=== PATIENT | female | born 1960 | race Caucasian/White ===

== ENCOUNTER 2022-04-04 12:24 | Outpatient (CLI) | payer MEDICARE, SELFPAY ==
[2022-04-04 12:33] VITALS: BMI 30.5
[2022-04-04 13:00] LABS: Basophils # 0.1 K/mm3 (0-0.2); Basophils % 1.3 % (0.1-2.0); Eosinophils # 0.3 K/mm3 (0.0-0.4); Eosinophils % 2.6 % (0.1-12.0); Hematocrit 26.7 % (37.0-47.0); Hemoglobin 8.3 g/dL (12.2-16.2); Lymphocytes # 2.5 K/mm3 (0.7-4.5); Lymphocytes % 23.4 % (10-50); Mean Corpuscular HGB Conc 30.9 g/dL (31.8-35.4); Mean Corpuscular Volume 77.6 fl (81-99); Mean Platelet Volume 7.7 fl (7.4-10.4); Monocytes # 0.6 K/mm3 (0.1-1.0); Monocytes % 5.5 % (1.7-9.3); Neutrophils # 7.1 K/mm3 (1.8-7.8); Neutrophils % 67.3 % (37.0-80.0); Platelet Count 711 K/mm3 (142-424); Red Blood Count 3.44 M/mm3 (4.20-5.40); Red Cell Distribution Width 17.6 % (11.5-17.5); White Blood Count 10.6 K/mm3 (4.8-10.8)
[2022-04-04 13:13] VITALS: BP 145/83; PULSE 84; RESP 18; TEMP 36.4; O2SAT 98
[2022-04-04 13:40] VITALS: BP 151/71; PULSE 73; RESP 16; O2SAT 99
[2022-04-04 14:05] VITALS: BP 148/78; PULSE 74; RESP 16; O2SAT 98
[2022-04-04 14:12] LABS: Ferritin 22.1 ng/ml (11.1-264)
[2022-04-04 14:28] LABS: Iron 32 ug/dL (37-170)
[2022-04-04 14:30] VITALS: BP 143/77; PULSE 78; RESP 18; O2SAT 97
[2022-04-04 14:37] LABS: Total Iron Binding Capacity 363 ug/dL (265-497)
[2022-04-04 14:50] VITALS: BP 144/76; PULSE 75; RESP 18; TEMP 36.6; O2SAT 98
[2022-04-04 15:03] VITALS: BP 158/75; PULSE 73; RESP 16; TEMP 36.6; O2SAT 98
== END 2022-04-04 15:05 | disposition home or self-care (01) ==
LOC: INF 12:28
PROVIDERS: PCP Nurse Practitioner Family; Visit Provider Internal Medicine Gastroenterology
DX: Z01.812 Encounter for preprocedural laboratory examination (principal); Z20.822 Contact with and (suspected) exposure to COVID-19; D50.0 Iron deficiency anemia secondary to blood loss (chronic); R19.5 Other fecal abnormalities; K90.9 Intestinal malabsorption, unspecified; Z79.1 Long term (current) use of non-steroidal anti-inflammatories (NSAID)
CPT/HCPCS: 82728; 83540; 83550; 85025; 96365; C9803; J1756; U0003; U0005

== ENCOUNTER → 2022-04-17 07:28 | Outpatient (CLI) | payer MEDICARE, SELFPAY ==
--- NOTE | 2022-04-17 07:56 | CA_ITS ---
FINAL REPORT TECHNIQUE: Grayscale, color Doppler and duplex Doppler ultrasound of the kidneys, aorta and renal arteries was performed. Multiple velocities were measured. CLINICAL HISTORY: HTN,HLD,HX ENDOMETRIAL CA WITH RADIATION TREATMENT SEVERAL YEARS AGO FINDINGS: Aorta velocity: 149 cm/sec Right kidney: 11.1 cm. There are several right renal cysts. There is a 5.1 cm right renal mass which does not have the appearance of a simple cyst. Right intrarenal RI: 168 Right renal artery velocity: 1.13 cm/sec. Right RAR (Renal artery-Aortic Ratio): 0.8, borderline. Left Kidney: 11.0 cm. There is moderate left hydronephrosis. Left intrarenal RI: 178 Left renal artery velocity: 1.19 cm/sec. Left RAR (Renal Artery-Aortic Ratio): 0.8, borderline. IMPRESSION: No sonographic evidence of significant renal artery stenosis. Moderate left hydronephrosis. Right renal mass does not appears to be a simple cyst. Recommend renal mass protocol CT. CT angiogram or postcontrast MR angiogram would be more sensitive for evaluation of possible renal artery stenosis. Reviewed, Interpreted and Dictated by Addy Cui III, MD Transcribed by Brenda Uribe Authenticated and [facility]
== END ==
PROVIDERS: PCP Nurse Practitioner Family; Visit Provider Student in an Organized Health Care Education/Training Program
DX: I10 Essential (primary) hypertension (principal)
CPT/HCPCS: 93976

== ENCOUNTER 2022-04-18 12:09 | Outpatient (CLI) | payer MEDICARE, SELFPAY ==
[2022-04-18 12:30] VITALS: BP 142/67; PULSE 74; RESP 18; O2SAT 98
[2022-04-18 14:06] VITALS: BP 151/69; PULSE 75; RESP 18
== END 2022-04-18 14:06 | disposition home or self-care (01) ==
PROVIDERS: Visit Provider Internal Medicine Gastroenterology
DX: D50.9 Iron deficiency anemia, unspecified (principal); K90.9 Intestinal malabsorption, unspecified
CPT/HCPCS: 96365; J1756

== ENCOUNTER 2022-05-08 11:15 | Outpatient (CLI) | payer MEDICARE, SELFPAY ==
[2022-05-08 11:35] VITALS: BP 125/74; PULSE 64; RESP 18; O2SAT 99; BMI 27.9
[2022-05-08 12:15] VITALS: BP 134/66; PULSE 68; RESP 18; O2SAT 99
[2022-05-08 12:26] LABS: Basophils # 0.1 K/mm3 (0-0.2); Eosinophils # 0.3 K/mm3 (0.0-0.4); Eosinophils % 3.3 % (0.1-12.0); Hematocrit 28.4 % (37.0-47.0); Hemoglobin 9.1 g/dL (12.2-16.2); Lymphocytes # 1.7 K/mm3 (0.7-4.5); Lymphocytes % 22.5 % (10-50); Mean Corpuscular HGB Conc 31.9 g/dL (31.8-35.4); Mean Corpuscular Hemoglobin 26.1 pg (27.0-31.2); Mean Corpuscular Volume 81.9 fl (81-99); Mean Platelet Volume 8.1 fl (7.4-10.4); Monocytes # 0.5 K/mm3 (0.1-1.0); Monocytes % 6.7 % (1.7-9.3); Neutrophils % 66.4 % (37.0-80.0); Platelet Count 453 K/mm3 (142-424); Red Blood Count 3.47 M/mm3 (4.20-5.40); Red Cell Distribution Width 20.5 % (11.5-17.5); White Blood Count 7.6 K/mm3 (4.8-10.8)
[2022-05-08 12:47] LABS: Total Iron Binding Capacity 275 ug/dL (265-497)
[2022-05-08 12:58] LABS: Iron 1514 ug/dL (37-170)
[2022-05-08 13:15] LABS: Ferritin 54.3 ng/ml (11.1-264)
== END 2022-05-08 12:15 | disposition home or self-care (01) ==
LOC: INF 11:16
PROVIDERS: PCP Nurse Practitioner Family; Visit Provider Internal Medicine Nephrology
DX: E83.19 Other disorders of iron metabolism (principal)
CPT/HCPCS: 82728; 83540; 83550; 85025; 96365; Q0138

== ENCOUNTER 2022-05-11 11:06 | Outpatient (CLI) | payer MEDICARE, SELFPAY ==
[2022-05-11 11:39] VITALS: BP 129/81; PULSE 81; RESP 18; TEMP 36.4; O2SAT 97
[2022-05-11 12:08] VITALS: BP 132/78; PULSE 78; RESP 16; TEMP 36.4; O2SAT 97
== END 2022-05-11 12:08 | disposition home or self-care (01) ==
LOC: INF 11:08
PROVIDERS: PCP Nurse Practitioner Family; Visit Provider Internal Medicine Nephrology
DX: D50.0 Iron deficiency anemia secondary to blood loss (chronic) (principal)
CPT/HCPCS: 96365; Q0138